=== PATIENT | male | born 1970 | race Caucasian/White ===

== ENCOUNTER 2023-09-15 12:44 | Emergency (ER) | payer OTHER, SELFPAY ==
[2023-09-15 12:48] VITALS: BP 134/81; PULSE 77; RESP 18; TEMP 36.1; O2SAT 98; BMI 32.5
--- NOTE | 2023-09-15 12:57 | DI.RAD.S_ITS ---
PROCEDURE: XR HAND RT MIN 3V INDICATIONS: palm lac with saw eval for fracture TECHNIQUE: 3 views of the hand(s) acquired. COMPARISON: None. FINDINGS: Bones: No acute fractures or dislocations. Carpal bones are normally aligned. No suspicious bony lesions. Chronic fracture deformity of the 5th metacarpal neck. Soft tissues: No suspicious soft tissue calcifications. Subcutaneous gas along the palmar surface of the mid hand. IMPRESSION: No acute bony abnormality. Subcutaneous gas along the palmar surface of the mid hand. Dictated by: Eduardo Peters M.D. on 09/15/2023 at 12:35 Approved by: Eduardo Peters M.D. on 09/15/2023 at 12:36
--- NOTE | 2023-09-15 13:14 | ED.WOUNDLAC ---
HPI - Wound/Laceration General Chief Complaint: Wound/Laceration Stated Complaint: Hand laceration Time Seen by Provider: 09/15/23 12:54 Source: patient Mode of arrival: Ambulatory History of Present Illness HPI narrative: Patient is a 53-year-old male. Right-hand dominant who is here for evaluation of a cut that he sustained to his right hand while working with a saw. He states it was not the saw blade but it was either the guard from the saw where the board itself that kicked back and cut himself in his hand. No other injuries from the event. Was covered with a bandage prior to arrival. Related Data Allergies Allergy/AdvReac Type Severity Reaction Status Date / Time No Known Drug Allergies Allergy Verified 09/15/23 12:48 Review of Systems Constitutional Constitutional: Reports system reviewed and no additional complaints, except as documented Musculoskeletal Musculoskeletal: Reports system reviewed and no additional complaints, except as documented Integumentary/Breasts Skin/Breast: Reports system reviewed and no additional complaints, except as documented Neurologic Neurologic: Reports system reviewed and no additional complaints, except as documented Patient History Social History Smoking Status: Never smoker Smoking Status: Never smoker Substance Use Type: does not use Exam Initial Vital Signs Initial Vital Signs: Vital Signs Temperature 97 F L 09/15/23 12:48 Pulse Rate 77 09/15/23 12:48 Respiratory Rate 18 09/15/23 12:48 Blood Pressure 134/81 09/15/23 12:48 Pulse Oximetry 98 09/15/23 12:48 Oxygen Delivery Method Room Air 09/15/23 12:48 Cardio Pulses: radial pulses present on the right Skin Other: Irregular laceration approximately 5-6 cm in length along the palmar aspect of the right hand. Neuro Sensory Exam: no sensory deficits noted Extrem Other: Patient with a cut to the palmar aspect of the right hand Procedures Laceration Repair Laceration 1: Site: hand Side (If applicable): right Size (cm): 5 Description: flap, irregular and clean Depth: simple, single layer Local Anesthetic: lidocaine 1% Amount of anesthesia used (mL): 10 Pre-repair: wound explored, irrigated extensively and deep structures intact Skin layer closed with: nylon Skin layer suture size: 4-0 Number of sutures: 13 Technique: simple, interrupted Course Orders Ordered: ED Orders 09/15/23 12:57 XR hand RT min 3V Stat Discontinued Medications Bacitracin (Bacitracin Oint 0.9 Gm Pckt) 1 applic TOP NOW ONE Stop: 09/15/23 14:36 Lidocaine HCl (Lidocaine 1% 20 Ml) 20 ml INJ INTRA-OP ONE Stop: 09/15/23 12:58 Vital Signs Vital signs: Vital Signs - 8 hr 09/15/23 12:48 Temperature 97 F L Pulse Rate 77 Respiratory Rate 18 Blood Pressure 134/81 Pulse Oximetry 98 Oxygen Delivery Method Room Air MDM - Wound/Laceration Imaging Data Extremity x-ray #1: Radiologist's Impression: PROCEDURE: XR HAND RT MIN 3V INDICATIONS: palm lac with saw eval for fracture TECHNIQUE: 3 views of the hand(s) acquired. COMPARISON: None. FINDINGS: Bones: No acute fractures or dislocations. Carpal bones are normally aligned. No suspicious bony lesions. Chronic fracture deformity of the 5th metacarpal neck. Soft tissues: No suspicious soft tissue calcifications. Subcutaneous gas along the palmar surface of the mid hand. IMPRESSION: No acute bony abnormality. Subcutaneous gas along the palmar surface of the mid hand. [facility] Narrative Medical decision making narrative: The laceration was closed as described above. Patient tolerated the procedure well. X-ray showed no bony injuries. Patient is up-to-date on his tetanus. Evaluation of the wound after anesthesia shows no deep tendon involvement. He was able to flex and extend both actively and passively at the MCP PIP and DIPJ joints both together and isolated. We will hold on any antibiotics. Patient was given care instructions and return precautions. He expressed understanding and agreement. Discharge Plan Departure Patient Disposition: Home Clinical Impression: Laceration Instructions: DI for Laceration Repair Activity Restrictions/Additional Instructions: The stitches do need to be removed in approximately 10 days. You can go to your primary care doctor's office with the walk-in clinic for this. I recommend topical antibiotic ointment such as bacitracin or Neosporin. After 24 hours you can wash your hands like normal using soap and water. Recommend that you do use the bandage in the Chuck bandage just to limit the amount of gripping that you were doing with the hands in order to allow the wound to heal properly. Return to the emergency department for new symptoms. Referrals: Miscellaneous,DoctorMD [Primary Care Provider] - Stand Alone Forms: Patient Portal/API
[2023-09-15 14:46] VITALS: BP 120/75; PULSE 66; RESP 16; TEMP 37.1; O2SAT 96
== END 2023-09-15 14:47 | disposition home or self-care (01) ==
PROVIDERS: Emergency Provider Emergency Medicine
DX: S61.411A Laceration without foreign body of right hand, initial encounter (principal); W27.0XXA Contact with workbench tool, initial encounter
CPT/HCPCS: 12002; 73130; 99282; 99283

== ENCOUNTER 2023-11-02 12:16 | Emergency (ER) | payer OTHER, SELFPAY ==
[2023-11-02 12:31] VITALS: BP 171/65; PULSE 65; RESP 18; TEMP 36.5; O2SAT 97; BMI 32.5
[2023-11-02 13:32] LABS: Add Manual Diff / Slide Review NO; Basophils Absolute Auto 0 /uL (0-100); Basophils Percent Auto 0.4 % (0-2); Eosinophils Absolute Auto 0 /uL (0-450); Eosinophils Percent Auto 0.2 % (2-4); Hemoglobin 14.2 g/dL (13.5-17.5); Lymphocytes Absolute Auto 1100 /uL (1100-4500); Lymphocytes Percent Auto 18.6 % (25-40); Mean Corpuscular HGB Conc 33.8 % (30-36); Mean Corpuscular Hemoglobin 29.8 PG (26-34); Monocytes Absolute Auto 600 /uL (0-900); Monocytes Percent Auto 9.2 % (3-14); Neutrophils Absolute Auto 4400 /uL (1500-7000); Neutrophils Percent Auto 71.6 % (50-75); Platelet Count 318 X10^3/uL (150-400); Red Blood Cell Count 4.77 X10^6/uL (4.5-5.9); Red Cell Distribution Width 13.4 % (11.6-14.8); White Blood Cell Count 6.1 X10^3/uL (4.5-11.0)
[2023-11-02 13:42] LABS: Acetaminophen < 10 ug/mL (10-30); Alanine Aminotransferase 16 IU/L (<50); Albumin 4.9 g/dL (3.5-5.0); Albumin Globulin Ratio 1.9 (1.0-2.8); Alkaline Phosphatase 58 U/L (38-126); Aspartate Aminotransferase 22 IU/L (17-59); BUN Creatinine Ratio 11.3 (6-22); Bilirubin Total 0.7 mg/dL (0.2-1.3); Blood Urea Nitrogen 9 mg/dL (9-20); Calcium 9.8 mg/dL (8.4-10.2); Carbon Dioxide 23 mmol/L (22-32); Chloride 105 mmol/L (98-107); Estimated Glomerular Filt Rate > 60 mL/min (>60); Ethanol (ETOH) < 10 mg/dL; Globulin 2.6 g/dL (1.7-4.1); Glucose 111 mg/dL (70-100); HEMOLYSIS < 15 (0-50); Salicylate < 1.0 mg/dL (<20); Sodium 139 mmol/L (137-145); Total Protein 7.5 g/dL (6.3-8.2)
--- NOTE | 2023-11-02 13:51 | ED.PSYCH ---
HPI - Psych General Chief Complaint: Psychiatric Symptoms Stated Complaint: depression, SI Time Seen by Provider: 11/02/23 13:09 Source: patient, RN notes reviewed and old records reviewed Mode of arrival: Ambulatory Limitations: no limitations History of Present Illness HPI Narrative: This is a 53-year-old with history of longstanding depression, chronic pain and prior addiction who presents with complaint of depression and suicidal ideation as well as intent. Patient states he has several plans to harm himself including using firearms or overdosing on drugs. Patient has been on Suboxone as well as trazodone for pain, addiction and insomnia. He has not been discussing his feelings with primary care. He has not been taking anything for depression. He states he has been longstanding feelings but worsening over time. Patient notes that he does follow with pain management as well as primary care regularly. Patient denies any thoughts of harming others. Does use tobacco daily, quit 4 weeks ago was drinking about 3 alcoholic drinks daily. Uses marijuana regularly. Denies any other recreational drugs. Patient lives in [place] he had driven up to the area he has family locally who is very supportive and would help keep him safe. They recommended he come to the ED and seek help which he is done because he does not feel that he can keep himself safe currently. He is seeking inpatient treatment at this time. He has never had inpatient treatment in the past. Related Data Allergies Allergy/AdvReac Type Severity Reaction Status Date / Time No Known Drug Allergies Allergy Verified 09/15/23 12:48 Review of Systems Review of Systems ROS Unobtainable: All systems reviewed & are unremarkable except as noted in HPI and below Patient History Social History Smoking Status: Never smoker Smoking Status: Never smoker tobacco type: smokeless tobacco alcohol intake frequency: other Substance Use Type: marijuana Exam Narrative Exam Narrative: GENERAL: Alert and oriented x three, male in mild distress. HEENT: Head normocephalic, atraumatic, EOMI, pupils reactive, face symmetric, moist mucous membranes NECK: Supple, full range of motion CARDIOVASCULAR: Regular rate and rhythm without murmurs, rubs or gallops. RESPIRATORY: Breath sounds equal bilaterally, no wheezes rales or rhonchi. ABDOMEN: Soft, nontender. Normoactive bowel sounds all 4 quadrants. No guarding or rebound, rigidity, no mass : No CVA tenderness EXTREMITIES: Normal range of motion, no clubbing or edema. Neurovascularly intact NEUROLOGICAL: Cranial nerves II through XII grossly intact. Moving all extremities SKIN: Warm, dry, no petechiae, no rashes or lesions. PSYCH: Suicidal ideation, intent, patient does have plan. No homicidal ideation, no hallucinations. Initial Vital Signs Initial Vital Signs: Vital Signs Temperature 97.7 F 11/02/23 12:31 Pulse Rate 65 11/02/23 12:31 Respiratory Rate 18 11/02/23 12:31 Blood Pressure 171/65 H 11/02/23 12:31 Pulse Oximetry 97 11/02/23 12:31 Oxygen Delivery Method Room Air 11/02/23 12:31 Course Orders Ordered: ED Orders 11/02/23 12:41 Consult to [employer] MACHINE TENDER - [employer] Stat 11/02/23 12:50 COVID19 -Nasal RAPID Stat 11/02/23 13:02 Acetaminophen Stat Complete Blood Count AUTO DIFF Stat Comprehensive Metabolic Panel Stat Ethanol (ETOH) Stat Free T4, Direct Thyroxine Stat Salicylate Stat Thyroid Stimulating Hormone Stat 11/02/23 14:39 Urine Drug Screen, Rapid Stat Urine Microscopic Stat Discontinued Medications Diazepam (Diazepam 5 Mg Tablet) 10 mg PO NOW ONE Stop: 11/02/23 14:20 Last Admin: 11/02/23 14:31 Dose: 10 mg Documented By: BROOKLYN Nicotine (Nicotine 21 Mg Patch) 21 mg TOP NOW ONE Stop: 11/02/23 14:24 Last Admin: 11/02/23 14:31 Dose: 21 mg Documented By: BROOKLYN Vital Signs Vital signs: Vital Signs - 8 hr 11/02/23 12:31 11/02/23 15:46 Temperature 97.7 F Pulse Rate 65 76 Respiratory Rate 18 16 Blood Pressure 171/65 H 123/74 Pulse Oximetry 97 96 Oxygen Delivery Method Room Air Room Air MDM - Psych Lab Data 11/02/23 13:02 11/02/23 13:02 Labs: Lab Results 11/02/23 11/02/23 11/02/23 Range/Units 12:50 13:02 14:39 WBC 6.1 (4.5-11.0) X10^3/uL RBC 4.77 (4.5-5.9) X10^6/uL Hgb 14.2 (13.5-17.5) g/dL Hct 42.0 (41-53) % MCV 88.0 (80-100) fL MCH 29.8 (26-34) PG MCHC 33.8 (30-36) % RDW 13.4 (11.6-14.8) % Plt Count 318 (150-400) X10^3/uL Neut % (Auto) 71.6 (50-75) % Lymph % (Auto) 18.6 L (25-40) % [place] % (Auto) 9.2 (3-14) % Eos % (Auto) 0.2 L (2-4) % Baso % (Auto) 0.4 (0-2) % Neut # (Auto) 4400 (9276-6290) /uL Lymph # (Auto) 1100 (9310-4444) /uL [place] # (Auto) 600 (0-900) /uL Eos # (Auto) 0 (0-450) /uL Baso # (Auto) 0 (0-100) /uL Sodium 139 (137-145) mmol/L Potassium 4.0 (3.4-5.1) mmol/L Chloride 105 (98-107) mmol/L Carbon Dioxide 23 (22-32) mmol/L BUN 9 (9-20) mg/dL Creatinine 0.80 (0.66-1.25) mg/dL Estimated GFR > 60 (>60) mL/min BUN/Creatinine Ratio 11.3 (6-22) Glucose 111 H (70-100) mg/dL Calcium 9.8 (8.4-10.2) mg/dL Total Bilirubin 0.7 (0.2-1.3) mg/dL AST 22 (17-59) IU/L ALT 16 (<50) IU/L Alkaline Phosphatase 58 (38-126) U/L Total Protein 7.5 (6.3-8.2) g/dL Albumin 4.9 (3.5-5.0) g/dL Globulin 2.6 (1.7-4.1) g/dL Albumin/Globulin Ratio 1.9 (1.0-2.8) TSH 0.626 (0.47-4.68) uIU/mL Free T4 1.07 (0.78-2.19) ng/dL Urine RBC None seen (0-5/HPF) Urine WBC None seen (0-5/HPF) Ur Squamous Epith Cells None seen (0-5/HPF) Urine Bacteria None seen (None) Ur Culture Indicated? Cult not indicated Vol Urine Centrifuged 10ml (spun) Salicylates < 1.0 (<20) mg/dL U Opiates 300ng/mL cut Negative (Negative) Ur Oxycodone Screen Negative (Negative) Urine Methadone Screen Negative (Negative) Acetaminophen < 10 (10-30) ug/mL Ur Barbiturates Screen Negative (Negative) U Tricyclic Antidepress Negative (Negative) Ur Phencyclidine Scrn Negative (Negative) Ur Amphetamines Screen Negative (Negative) U Methamphetamines Scrn Negative (Negative) Ur MDMA Scrn (Ecstasy) Negative (Negative) U Benzodiazepines Scrn Positive H (Negative) Urine Cocaine Screen Negative (Negative) U Marijuana (THC) Screen Positive H (Negative) Urine pH Normal (Normal) Urine Specific [place] Normal (Normal) Ethyl Alcohol < 10 ( - 10) mg/dL Ur Creatinine Normal (Normal) SARS-CoV-2 (PCR) Negative (Negative) Urine Dip Bedside Urine Glucose Negative Bedside Urine Bilirubin - Negative Bedside Urine Ketone +/- 5 Urine Specific [place] 1.005 Bedside Urine Occult Blood + Bedside Urine pH 6.5 Bedside Urine Protein - Negative Bedside Urine Urobilinogen - Negative Bedside Urine Nitrite - Negative Bedside Urine Leukocytes - Negative Esterase MDM Narrative Medical decision making narrative: 53-year-old with history of longstanding depression not currently treated who presents with complaint of suicidal ideation with an intent and plan and concern that he is unable to keep himself safe. Patient has not had any prior inpatient stays. Has been following regularly with pain managed in primary care and has been on Suboxone maintenance therapy for some time, has also been on trazodone these are his only current medications. Labs show white count of 6.1 hemoglobin of 14 platelets of 318. Chemistries are negative creatinine 0.8, glucose is 111 LFTs are negative TSH is 0.626 with a free T4 of 1.07. Tylenol, salicylate and ETOH are negative. COVID is negative Urine drug screen positive for benzodiazepines and marijuana. Patient did have a dose of Valium here in the department prior to his urine sample. Patient is medically cleared. Did have a single dose of Valium. Patient has been accepted at [facility] in [place] for voluntary inpatient. Discharge Plan Departure Patient Disposition: Xfer Psychiatric Hosp Clinical Impression: Suicidal ideation Referrals: Mismorris,MD Catrachita [Primary Care Provider] -
[2023-11-02 13:58] LABS: Free T4, Direct Thyroxine 1.07 ng/dL (0.78-2.19)
[2023-11-02 14:03] LABS: COVID19 -Nasal RAPID Negative (Negative)
[2023-11-02 14:12] LABS: Thyroid Stimulating Hormone 0.626 uIU/mL (0.47-4.68)
--- NOTE | 2023-11-02 14:26 | CM.SWNOTE ---
ED TECHNICAL SUPPORT PROFESSIONAL Assessment Note TECHNICAL SUPPORT PROFESSIONAL - Supervisor Inspection And Testing Assessment TECHNICAL SUPPORT PROFESSIONAL/Supervisor Inspection And Testing Assessment Time Spent with Patient Start date 11/02/23 Visit Start Time 12:30 End date 11/02/23 Visit End Time 12:50 Total time Care Management spent on 30 minutes patient visit-in minutes Mental Health Screening Include Onset, Duration, Intensity Presenting Problem Patient presents to ED with cousin who is an ED provider due to patient concern for increasing SI with thoughts of various plans and recent intent to act on plans. Patient drove from [place] to [place] for safety to cousin 's home due to concern for patient's SI and seeking help. Patient presents to ED seeking voluntary inpatient hospitalization. Precipitating Event(s) Patient endorses increase in life stressors over the last 6 weeks, it is reported that his left him, he has stopped talking to family and been experiencing paranoia since his left him. Patient Strengths Patient has supportive cousins in [place] and support from son in [place], [place]. Current Behavioral Health Provider(s) Patient endorses hx of MH Include Facility, Provider, Ph. # provider 10 years ago and would be open to seeing a new provider again. Psych. Hx Mental Health and Chemical Patient has hx of PTSD, Dependency Anxiety, SI with thoughts of plans. 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 Patient is also prescribed Trazadone. Patient states he stopped drinking 4 weeks ago, uses Marijuana regularly and denies any other substance use. Family Hx of Behavioral Abuse None reported Psychiatric Hospitalizations (date(s)/ No hx. location) Psychosocial information & Support Patient is 53 y/o male who Systems resides in [place]. Patient has support from family in [place] and son in [place] . School/Work Retired Legal Concerns Legal Matters - Outstanding Issues None reported Mental Status Orientation (Person/Place/Time) A/Ox4 Stated Mood I want help Affect (Congruent with Mood?) dysthymic, congruent with mood , full range, tearful at times . Thought Content - Specify/Describe Patient denies visual and Obsessions, Delusions, Hallucinations auditory hallucinations. Patient states that he has been paranoid worried that someone has been out to get him since his left him. Thought Processes (Ohdupwc-Fdqetoxs-Vaba coherent, goal oriented Uchqoold-Trccekgw-Ahyhrlpapx- Lygechpkbmquie-Pcvqktb-Xlemarzwwpya- Thought Blocking) Speech (Nibirt-Eutt-Ddsxjon-Rapid-Soft- normal Loud-Pressured) Motor (Hrvsms-Ixklzqjts-Nlhm-Other) normal Insight (Awor-Pawi-Qeby/Limited) fair Judgement (Abcf-Hjxw-Yeyu/Limited) fair Impulse Control (Adequate-Impaired) adequate Memory (Tbmpbltig-Yzwoin-Kihxlm, intact, not formally assessed Impaired-Intact) Concentration (Intact-Impaired) intact Attention (Intact-Impaired) intact Behavior (Appropriate-Inappropriate) appropriate Additional Comment Patient presents as calm, cooperative and communicative. Risk Assessment Suicidal Ideation (Plan) Yes Homicidal Ideation (Plan) No Comment Patient endorses SI all of the time, increasing in the last 6 weeks with thoughts of plans to use his guns, hang him self, overdose or use alcohol. Patient states he has gotten close a few times in regards to acting on SI, patient endorses recent thoughts of intent but endorses safety while at the hospital. Patient denies HI. Intervention Intervention TECHNICAL SUPPORT PROFESSIONAL enters triage room to meet with patient, present in room is patient's cousin. Patient presents with concerns due to increase in SI with thoughts of plans and fearful of acting on plans. Patient endorses concern for increase in life stressors over the last 6 weeks. Patient drove all the way from [place] to seek help from cousin and patient is very voluntary for inpatient hospitalization. It is the opinion of this TECHNICAL SUPPORT PROFESSIONAL that patient is appropriate for and would benefit from voluntary inpatient hospitalization for safety, crisis stabilization and medication management. TECHNICAL SUPPORT PROFESSIONAL reviews this with ED provider who indicates agreement and understanding. Plan RA Plan TECHNICAL SUPPORT PROFESSIONAL to seek voluntary inpatient hospitalization placement upon medical clearance. CODI SinghSW
[2023-11-02] MEDS: NICOTINE 21 MG PATCH TOP (14:31)
[2023-11-02] MEDS: diazePAM 5 MG TABLET 10 MG PO (14:31)
[2023-11-02 14:52] LABS: UR Morphine/Opiate cutoff 300 Negative (Negative); Ur Creatinine Normal (Normal); Ur Specific Gravity Normal (Normal); Urine Amphetamines Negative (Negative); Urine Barbiturates Negative (Negative); Urine Benzodiazepines Positive (Negative); Urine Cocaine Negative (Negative); Urine MDMA Negative (Negative); Urine Methadone Negative (Negative); Urine Methamphetamines Negative (Negative); Urine Oxycodone Negative (Negative); Urine Phencyclidine Negative (Negative); Urine Tetrahydrocannabinol Positive (Negative); Urine Tricyclic Antidepressant Negative (Negative); Urine pH Normal (Normal)
[2023-11-02 14:55] LABS: Bacteria Urine None Seen; Culture Indicated Urine Cult Not Indicated; RBC Urine None Seen (0-5/HPF); Squamous Epithelial Cell Urine None Seen (0-5/HPF); Urine Volume 10mL (spun); WBC Urine None Seen (0-5/HPF)
--- NOTE | 2023-11-02 15:37 | CM.SWNOTE ---
ED ELEMENT SETTER Note ELEMENT SETTER calls [facility], it is reported that they are at capacity. ELEMENT SETTER calls [facility], it is reported that they have beds and can review patient, ELEMENT SETTER faxes clinicals for review. [facility] calls back to report that patient has been accepted by Dr. Heredia, and can transport at any time. [facility] faxes voluntary agreement form for patient to sign, patient signs form and ELEMENT SETTER faxes it back. Patient endorses agreement and understanding to plan. ELEMENT SETTER calls [facility] and sets up transport for 1555 clam picker time. ELEMENT SETTER calls [facility] regarding this. Plan: Patient to transfer to [facility] 1 central unit for voluntary inpatient hospitalization via BLS this evening. CODI SinghSW
[2023-11-02 15:46] VITALS: BP 123/74; PULSE 76; RESP 16; O2SAT 96
--- NOTE | 2023-11-02 15:49 | PC.NURSE ---
FORMING MACHINE UPKEEP MECHANIC Note: Patient's belonings given to [facility] for transport.
== END 2023-11-02 16:20 ==
PROVIDERS: Emergency Provider Emergency Medicine
DX: R45.851 Suicidal ideations (principal); Z11.52 Encounter for screening for COVID-19
CPT/HCPCS: 36415; 80053; 80305; 80320; 80329; 81003; 81015; 84439; 84443; 85025; 87635; 99284; G0480

== ENCOUNTER 2024-09-27 11:13 | Day surgery (SDC) | payer MEDICARE, SELFPAY ==
[2024-09-27 11:38] VITALS: BP 112/81; PULSE 91; RESP 16; TEMP 36.4; O2SAT 95
[2024-09-27] MEDS: LACTATED RINGERS 1,000 ML 42 ML IV (11:52)
--- NOTE | 2024-09-27 12:03 | P.HP_ITS ---
History of Present Illness History of Present Illness Date Patient Seen: 09/27/24 Chief complaint: Screening Colonoscopy PENDING SALE TO [facility] Social History Smoking Status: Never smoker alcohol intake: never Meds Home Medications and Allergies Home Medications ?Medication ?Instructions ?Recorded ?Confirmed ?Type buprenorphine 4 mg-naloxone 1 mg 1 film buccal DAILY 0 09/27/24 09/27/24 History sublingual film (Suboxone) semaglutide (weight loss) 2.4 2.4 mg SUBCUT QWEEK 09/0109/27/24 History mg/0.75 mL subcutaneous pen injector (Wegovy) Allergies Allergy/AdvReac Type Severity Reaction Status Date / Time No Known Drug Allergies Allergy Verified 09/27/24 11:30 Exam Vital Signs (past 8 hours): - 09/27/24 11:38 Temperature 97.6 F Pulse Rate 91 H Respiratory Rate 16 Blood Pressure 112/81 Pulse Oximetry 95 Oxygen Delivery Method Room Air Oxygen Delivery Method Room Air Narrative Exam Narrative: Oropharynx free of lesions Assessment & Plan Assessment & Plan narrative: First screening colonoscopy. Risks, benefits, alternatives have been explained. Time-Based Coding :: [TOTAL MINUTES] spent with patient and on the chart (including review of chart, obtaining history, exam, reviewing outside data, placing orders, documenting exam and treatment plan, and counseling patient) on [DATE]. PROFEE Soaking Room Operator Document charge(s): No
--- NOTE | 2024-09-27 12:06 | PM.OP.COLON ---
Operative Date/Time/Diagnoses Date of procedure: 09/27/24 Time of procedure: 12:44 Pre-op diagnosis: See indications and findings Post-op diagnosis: same Procedure & Clinicians Study performed: Colonoscopy Same procedure(s) as scheduled: Yes Indications: First screening colonoscopy Surgeon: Fang Goodson Anesthesia Type: General, Spinal, Epidural, MAC +/-, Sedation, Peripheral nerve block, Local, Retrobulbar block, Other and None Procedure Notes Procedure in detail: After informed consent was obtained the patient was placed in left lateral decubitus position. The video colonoscope was introduced the rectum slowly advanced cecum. Preparation was good. On slow withdrawal mucosa was carefully examined. The scope was removed. The patient tolerated procedure well. Blood loss none Complications none Sedation mac Findings 1. 12 mm sessile polyp in the cecum. This was raised with injection of saline and using endo cut setting was completely removed. Specimen was retrieved. The site was injected with 1 cc spot. 2. Otherwise negative colonoscopy to cecum Patient should have follow-up colonoscopy in 1 year pending the results of the biopsy
[2024-09-27] MEDS: FLEETS ENEMA 1 EACH PR (12:08)
--- NOTE | 2024-09-27 12:45 | PATH_ITS ---
[facility] Accession Number: [id number] No. of containers..01 Tissue . 01 Material submitted: . colon - CECAL POLYP . 01 Diagnosis: CECAL POLYP: Tubular adenoma. [facility] 10/04/2024 1220 Local . 01 Electronically signed: . Rashaad Guzmán MD, Pathologist NPI- [id number] . 01 Gross description: . Received in formalin with two identifiers and cecal polyp, are two casiano soft tissue fragments ranging from 0.3 to 0.9 cm in greatest dimension, entirely submitted in A1. ([id number]) /MRV 10/04/2024 1220 Local . 01 Pathologist provided ICD-10: D12.0 . 01 CPT . 879517 Specimen Comment: A courtesy copy of this report has been sent to [phone] Performed at: [address] [id number] MD Rashaad Guzmán MD Phone: [phone]
[2024-09-27 12:47] VITALS: BP 107/67; PULSE 86; RESP 16; TEMP 36.5; O2SAT 95
[2024-09-27 13:00] VITALS: BP 104/74; PULSE 86; RESP 20; O2SAT 95
== END 2024-09-27 13:20 | disposition home or self-care (01) ==
PROVIDERS: PCP Student in an Organized Health Care Education/Training Program; Referring Provider Student in an Organized Health Care Education/Training Program; Visit Provider Internal Medicine Gastroenterology
PROC: 0DJD8ZZ Inspection of Lower Intestinal Tract, Via Natural or Artificial Opening Endoscopic (ICD-10-PCS; CPT 45378; principal; 2024-09-27 12:30)
DX: Z12.11 Encounter for screening for malignant neoplasm of colon (principal); D12.0 Benign neoplasm of cecum
CPT/HCPCS: 45384; 45381; J2704